=== PATIENT | female | born 1950 | race Caucasian/White ===

== ENCOUNTER → 2020-07-09 | Outpatient (CLI) | payer MEDICARE | END | disposition home or self-care (01) | LOC: CVU 12:44 | PROVIDERS: ATTEND Internal Medicine Cardiovascular Disease | DX: I08.3 Combined rheumatic disorders of mitral, aortic and tricuspid valves (principal); I65.23 Occlusion and stenosis of bilateral carotid arteries; R09.89 Other specified symptoms and signs involving the circulatory and respiratory systems; I11.9 Hypertensive heart disease without heart failure; R00.0 Tachycardia, unspecified | CPT/HCPCS: 93306; 93356; 93880 ==

== ENCOUNTER → 2020-07-26 | Outpatient (CLI) | payer MEDICARE ==
[~2020-07-26] MED LIST: REGADENOSON 0.4 MG/5 ML SYRINGE ONE
== END | disposition home or self-care (01) ==
LOC: CFH 07:14
PROVIDERS: ATTEND Internal Medicine Cardiovascular Disease
DX: I65.23 Occlusion and stenosis of bilateral carotid arteries (principal); R07.89 Other chest pain; I35.0 Nonrheumatic aortic (valve) stenosis; R09.89 Other specified symptoms and signs involving the circulatory and respiratory systems
CPT/HCPCS: 78452; 93017; A9502; J2785

== ENCOUNTER 2020-10-10 06:29 | Day surgery (SDC) | payer MEDICARE ==
[2020-10-10] MEDS ORDERED: CLIN300C9 PO (06:53)
[2020-10-10] MEDS ORDERED: ROSU40TA PO (06:53)
[2020-10-10] MEDS ORDERED: VALS80TA3 PO (06:53)
[2020-10-10] MEDS ORDERED: INSU100I13 SQ (06:53)
[2020-10-10] MEDS ORDERED: INSU100C SQ-INSULIN (06:53)
[2020-10-10] MEDS ORDERED: GABA100C PO (06:53)
[2020-10-10] MEDS ORDERED: FLUO20CA23 PO (06:53)
[2020-10-10] MEDS ORDERED: METO25TA35 PO (06:53)
[2020-10-10] MEDS ORDERED: TRAZ50TA66 PO (06:53)
[2020-10-10] MEDS ORDERED: ASPI81TA45 PO (06:53)
[2020-10-10] MEDS ORDERED: LIPA1CAP61 PO (06:53)
[2020-10-10] MEDS ORDERED: SODIUM CHLORIDE 0.9% 1,000 ML IV ONE (07:00)
[2020-10-10] MEDS ORDERED: PROPOFOL 10 MG/ML, 20ML ONE (07:31)
[2020-10-10 07:53] LABS: ALANINE AMINOTRANSFERASE 21 U/L (12-78); ALBUMIN 3.6 g/dL (3.4-5.0); ANION GAP 7 mmol/L (5-15); CALCIUM 8.5 mg/dL (8.5-10.1); CHLORIDE 108 mmol/L (98-107)
[2020-10-10 08:01] LABS: ALKALINE PHOSPHATASE 86 U/L (45-117); BILIRUBIN,TOTAL 0.4 mg/dL (0.2-1.0); CHOLESTEROL, TOTAL 154 mg/dL (140-239); CREATININE 0.71 mg/dL (0.55-1.02); FREE T4 (FREE THYROXINE) 1.08 ng/dL (0.76-1.46); HDL CHOL % 33 % (28-40); HDL CHOLESTEROL (DIRECT) 51 mg/dL (40-60); LDL CHOLESTEROL,CALCULATED 85 mg/dL (54-169); LDL/HDL RATIO 1.7 (0.5-3.0); TOTAL PROTEIN 6.5 g/dL (6.4-8.2); TRIGLYCERIDES 91 mg/dL (50-200); VLDL CHOLESTEROL 18 mg/dL (0-25)
[2020-10-10] MEDS ORDERED: ONDANSETRON 2MG/ML, 2ML ONE (08:47)
[2020-10-10] MEDS ORDERED: MAALOX/HYOSCYAMINE/LIDOCAINE 45 ML BTL PO ONE (09:00)
[2020-10-10] MEDS ORDERED: ONDANSETRON 2MG/ML, 2ML IVPush ONE (09:00)
== END 2020-10-10 09:47 | disposition home or self-care (01) ==
LOC: CACL 06:29
PROVIDERS: ATTEND Internal Medicine Cardiovascular Disease
DX: I08.0 Rheumatic disorders of both mitral and aortic valves (principal); I25.10 Atherosclerotic heart disease of native coronary artery without angina pectoris; I10 Essential (primary) hypertension; E10.42 Type 1 diabetes mellitus with diabetic polyneuropathy; E78.2 Mixed hyperlipidemia; Z20.822 Contact with and (suspected) exposure to COVID-19; Z79.4 Long term (current) use of insulin; Z79.82 Long term (current) use of aspirin; Z79.899 Other long term (current) drug therapy; Z88.0 Allergy status to penicillin
CPT/HCPCS: 36415; 80053; 80061; 82962; 83036; 84439; 84443; 87635; 93312; 93321; 93325; J2405; J2704

== ENCOUNTER 2020-11-14 06:52 | Day surgery (SDC) | payer MEDICARE ==
[~2020-11-14] VITALS: Ht 165.1 cm; Wt 69.0 kg
[~2020-11-14 06:52] MED LIST changes: +ASPI81TA45 PO; +CLIN300C9 PO; +FLUO20CA23 PO; +GABA100C PO; +INSU100C SQ-INSULIN; +INSU100I13 SQ; +LIPA1CAP61 PO; +METO25TA35 PO; -REGADENOSON 0.4 MG/5 ML SYRINGE ONE; +ROSU40TA PO; +TRAZ50TA66 PO; +VALS80TA3 PO
[2020-11-14] MEDS ORDERED: IBUP-11 PO (07:28)
[2020-11-14] MEDS ORDERED: LIPA1CAP61 PO (07:28)
[2020-11-14] MEDS ORDERED: METO25TA91 PO (07:28)
[2020-11-14 07:55] LABS: BASOPHILS % (AUTO) 1 % (0-1); EOSINOPHILS % (AUTO) 2 % (1-7); LYMPHOCYTES % (AUTO) 30 % (22-44); MD NO; MEAN CORPUSCULAR HEMOGLOBIN 28.4 pg (27.0-34.8); MEAN CORPUSCULAR HGB CONC 33.4 g/dL (32.4-35.8); MEAN PLATELET VOLUME 10.6 fL (7.4-10.4); MONOCYTES % (AUTO) 8 % (2-9); NEUTROPHILS % (AUTO) 59 % (42-75); PLATELET COUNT 169 x10^3/uL (130-400); RED BLOOD COUNT 4.81 x10^6/uL (3.82-5.3); RED CELL DISTRIBUTION WIDTH 13.8 % (9.6-15.2)
[2020-11-14 08:06] LABS: ANION GAP 6 mmol/L (5-15); CALCIUM 8.8 mg/dL (8.5-10.1); CHLORIDE 110 mmol/L (98-107); CREATININE 0.62 mg/dL (0.55-1.02)
[2020-11-14] MEDS ORDERED: FENTANYL PF 100 MCG/2ML ONE (08:15)
[2020-11-14] MEDS ORDERED: VERAPAMIL 2.5 MG/ML, 2ML ONE (08:15)
[2020-11-14] MEDS ORDERED: MIDAZOLAM 1 MG/ML, 5ML ONE (08:15)
[2020-11-14] MEDS ORDERED: LIDOCAINE-MPF 1%, 5ML ONE (08:16)
[2020-11-14] MEDS ORDERED: HEPARIN 1,000 UNITS/ML, 10ML ONE (08:16)
[2020-11-14] MEDS ORDERED: LIDOCAINE 2%, 20ML ONE (09:10)
[2020-11-14] MEDS ORDERED: SODIUM CHLORIDE 0.9% 1,000 ML IV SCH (10:00)
== END 2020-11-14 11:47 | disposition home or self-care (01) ==
LOC: CACL 06:52
PROVIDERS: ATTEND Internal Medicine Cardiovascular Disease
DX: I35.1 Nonrheumatic aortic (valve) insufficiency (principal); Q25.46 Tortuous aortic arch; I25.10 Atherosclerotic heart disease of native coronary artery without angina pectoris; I25.84 Coronary atherosclerosis due to calcified coronary lesion; I25.83 Coronary atherosclerosis due to lipid rich plaque; I10 Essential (primary) hypertension; E78.5 Hyperlipidemia, unspecified; E10.9 Type 1 diabetes mellitus without complications; Z79.1 Long term (current) use of non-steroidal anti-inflammatories (NSAID); Z79.4 Long term (current) use of insulin; Z79.899 Other long term (current) drug therapy; Z88.0 Allergy status to penicillin; Z95.2 Presence of prosthetic heart valve; Z98.890 Other specified postprocedural states; Z83.3 Family history of diabetes mellitus
CPT/HCPCS: 36415; 80048; 85025; 93458; 99156; 99157; C1769; C1894; J1644; J2250; J3010; Q9967

== ENCOUNTER → 2020-11-28 | Outpatient (CLI) | payer MEDICARE ==
[~2020-11-28] MED LIST changes: +IBUP-11 PO; +METO25TA91 PO; +OMNIPAQUE 350 MG/ML, 100ML BOTTLE ONE
== END | disposition home or self-care (01) ==
LOC: RAD 12:34
PROVIDERS: ATTEND Thoracic Surgery (Cardiothoracic Vascular Surgery)
DX: I35.1 Nonrheumatic aortic (valve) insufficiency (principal)
CPT/HCPCS: 71275; 74174; Q9967

== ENCOUNTER 2021-01-06 22:20 | Inpatient (IN) | payer MEDICARE ==
[~2021-01-06] VITALS: Ht 162.6 cm; Wt 77.4 kg
[~2021-01-06 22:20] MED LIST changes: +FURO20TA3 PO; +IBUP100T9 PO; +LIPA1CAP45 PO; -OMNIPAQUE 350 MG/ML, 100ML BOTTLE ONE; +POTA10TA5 PO; +TRAM50TA2 PO
--- NOTE | 2021-01-06 22:24 | NUR ---
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
--- NOTE | 2021-01-06 22:30 | NUR ---
ERP TO BEDSIDE FOR EVAL
[2021-01-06 23:17] LABS: BASOPHILS % (AUTO) 0 % (0-1); EOSINOPHILS % (AUTO) 1 % (1-7); LYMPHOCYTES % (AUTO) 17 % (22-44); MEAN CORPUSCULAR HGB CONC 32.8 g/dL (32.4-35.8); MEAN PLATELET VOLUME 9.1 fL (7.4-10.4); MONOCYTES % (AUTO) 12 % (2-9); NEUTROPHILS % (AUTO) 70 % (42-75); PLATELET COUNT 194 x10^3/uL (130-400)
[2021-01-06 23:20] LABS: MD NO
[2021-01-06 23:26] LABS: ALANINE AMINOTRANSFERASE 89 U/L (12-78); ALBUMIN 2.6 g/dL (3.4-5.0); ANION GAP 6 mmol/L (5-15); CALCIUM 8.4 mg/dL (8.5-10.1); CHLORIDE 102 mmol/L (98-107); CREATININE 0.54 mg/dL (0.55-1.02)
[2021-01-06 23:30] LABS: ALKALINE PHOSPHATASE 121 U/L (45-117); BILIRUBIN,TOTAL 0.5 mg/dL (0.2-1.0); TOTAL PROTEIN 6.1 g/dL (6.4-8.2)
[2021-01-06 23:48] LABS: TROPONIN I 0.407 ng/mL (0.000-0.045)
[2021-01-07] VITALS (7 sets, daily range): BP systolic 96–179; BP diastolic 58–82
[2021-01-07] MEDS ORDERED: BISACODYL 10 MG SUPP PR PRN (00:30)
[2021-01-07] MEDS ORDERED: hydrALAzine 20 MG/ML, 1ML IVPush PRN (00:30)
[2021-01-07] MEDS ORDERED: POLYETHYLENE GLYCOL 17 GM PACKET PO PRN (00:30)
[2021-01-07] MEDS ORDERED: FUROSEMIDE 40 MG/4 ML IV ONE (00:30)
[2021-01-07] MEDS ORDERED: ONDANSETRON ODT 4 MG PO PRN (00:30)
--- NOTE | 2021-01-07 00:40 | NUR ---
REPORT TO LYN COLÓN PT TO BE TRANSFERED TO [phone]
--- NOTE | 2021-01-07 00:57 | NUR ---
ASHWIN [phone]
[2021-01-07] MEDS ORDERED: SIMETHICONE 80 MG CHEW TAB PO PRN (01:00)
[2021-01-07] MEDS: INSULIN LISPRO 100 UNITS/ML, PEN SQ-INSULIN SCH ×5 (01:31→20:15)
[2021-01-07 05:26] LABS: ALANINE AMINOTRANSFERASE 79 U/L (12-78); ALBUMIN 2.5 g/dL (3.4-5.0); ANION GAP 7 mmol/L (5-15); CALCIUM 8.3 mg/dL (8.5-10.1); CHLORIDE 100 mmol/L (98-107); CREATININE 0.49 mg/dL (0.55-1.02)
[2021-01-07 05:29] LABS: BASOPHILS % (AUTO) 0 % (0-1); EOSINOPHILS % (AUTO) 1 % (1-7); LYMPHOCYTES % (AUTO) 10 % (22-44); MEAN CORPUSCULAR HEMOGLOBIN 28.7 pg (27.0-34.8); MEAN CORPUSCULAR HGB CONC 33.8 g/dL (32.4-35.8); MEAN PLATELET VOLUME 8.6 fL (7.4-10.4); MONOCYTES % (AUTO) 13 % (2-9); NEUTROPHILS % (AUTO) 77 % (42-75); PLATELET COUNT 202 x10^3/uL (130-400); RED BLOOD COUNT 3.25 x10^6/uL (3.82-5.3); RED CELL DISTRIBUTION WIDTH 14.1 % (9.6-15.2)
[2021-01-07 05:30] LABS: ALKALINE PHOSPHATASE 101 U/L (45-117); BILIRUBIN,TOTAL 0.5 mg/dL (0.2-1.0); TROPONIN I 0.341 ng/mL (0.000-0.045)
[2021-01-07 05:32] LABS: MD NO
[2021-01-07] MEDS: ASPIRIN 81 MG TABLET EC PO SCH (09:00)
[2021-01-07] MEDS: SENNA/DOCUSATE TABLET PO SCH (09:00)
[2021-01-07] MEDS ORDERED: ACETAMINOPHEN 325 MG TABLET PO PRN (09:00)
[2021-01-07] MEDS: POTASSIUM CHLORIDE 10 MEQ TABLET.ER PO SCH (09:00)
[2021-01-07] MEDS: VALSARTAN 80 MG TABLET PO SCH (09:01)
[2021-01-07] MEDS: SODIUM CHLORIDE FLUSH 10ML SYR IVF SCH ×2 (09:02→20:15)
[2021-01-07] MEDS: ENOXAPARIN 40 MG/0.4 ML SQ SCH (10:00)
[2021-01-07] MEDS: CARVEDILOL 6.25 MG TABLET PO SCH ×2 (10:01→17:49)
[2021-01-07] MEDS: PANCRELIPASE 24,000 CAPSULE.DR PO SCH ×3 (10:01→16:15)
[2021-01-07] MEDS: FUROSEMIDE 20 MG/2 ML IV SCH ×2 (13:11→16:15)
[2021-01-07] MEDS ORDERED: TRAZODONE 50MG TABLET PO SCH (21:00)
[2021-01-07] MEDS ORDERED: INSULIN GLARGINE 100 UNITS/ML, PEN SQ-INSULIN SCH (21:00)
[2021-01-07] MEDS ORDERED: ATORVASTATIN 80 MG TABLET PO SCH (21:00)
[2021-01-08 01:03] VITALS: BP 103/63
[2021-01-08] MEDS: CARVEDILOL 6.25 MG TABLET PO SCH ×2 (05:23→17:14)
[2021-01-08 05:54] LABS: ALBUMIN 2.4 g/dL (3.4-5.0); CALCIUM 8.4 mg/dL (8.5-10.1); CHLORIDE 102 mmol/L (98-107)
[2021-01-08 06:00] LABS: CREATININE 0.49 mg/dL (0.55-1.02); IRON LEVEL 38 mcg/dL (50-170); TOTAL IRON BINDING CAPACITY 216 mcg/dL (250-450)
[2021-01-08 06:01] LABS: % IRON SATURATION 18 % (20-55); ALANINE AMINOTRANSFERASE 60 U/L (12-78); ALKALINE PHOSPHATASE 89 U/L (45-117); BILIRUBIN,TOTAL 0.6 mg/dL (0.2-1.0); TOTAL PROTEIN 5.7 g/dL (6.4-8.2)
[2021-01-08 06:05] LABS: ANION GAP 4 mmol/L (5-15)
[2021-01-08 07:26] VITALS: BP 100/61
[2021-01-08] MEDS ORDERED: FERROUS SULFATE 325 MG TABLET ONE (08:27)
[2021-01-08] MEDS ORDERED: FUROSEMIDE 20 MG TABLET ONE (08:27)
[2021-01-08] MEDS ORDERED: FERROUS SULFATE 325 MG TABLET PO SCH (08:30)
[2021-01-08] MEDS: INSULIN LISPRO 100 UNITS/ML, PEN SQ-INSULIN SCH ×3 (08:33→16:14)
[2021-01-08] MEDS: ENOXAPARIN 40 MG/0.4 ML SQ SCH (08:34)
[2021-01-08] MEDS: SENNA/DOCUSATE TABLET PO SCH (08:34)
[2021-01-08] MEDS: VALSARTAN 80 MG TABLET PO SCH (08:34)
[2021-01-08] MEDS: POTASSIUM CHLORIDE 10 MEQ TABLET.ER PO SCH (08:35)
[2021-01-08] MEDS: SODIUM CHLORIDE FLUSH 10ML SYR IVF SCH (08:35)
[2021-01-08] MEDS: ASPIRIN 81 MG TABLET EC PO SCH (08:35)
[2021-01-08] MEDS: PANCRELIPASE 24,000 CAPSULE.DR PO SCH ×3 (08:35→16:14)
[2021-01-08] MEDS ORDERED: FUROSEMIDE 20 MG TABLET PO SCH (09:00)
[2021-01-08] MEDS ORDERED: FUROSEMIDE 40 MG TABLET PO SCH (09:00)
[2021-01-08] MEDS ORDERED: POTASSIUM CHLORIDE 20 MEQ TAB.ER.PRT PO ONE (10:00)
[2021-01-08] MEDS ORDERED: FUROSEMIDE 40 MG TABLET PO ONE (10:00)
[2021-01-08 11:32] VITALS: BP 96/59
[2021-01-08] MEDS ORDERED: FURO20TA3 PO (13:09)
[2021-01-08] MEDS ORDERED: FERR-36 PO (13:09)
[2021-01-08] MEDS ORDERED: CARV6.2512 PO (13:09)
[2021-01-08] MEDS ORDERED: INSU100I13 SQ-INSULIN (13:16)
[2021-01-08 15:08] VITALS: BP 101/61
[2021-01-08 17:19] VITALS: BP 114/67
[2021-01-08] MEDS ORDERED: INSULIN GLARGINE 100 UNITS/ML, PEN SQ-INSULIN SCH (21:00)
== END 2021-01-08 18:00 | disposition home or self-care (01) | DRG 280 ==
LOC: ED 23:07 → EDIP 01-07 00:28 → 5SO 01-07 00:55
PROVIDERS: ATTEND Internal Medicine
DX: I11.0 Hypertensive heart disease with heart failure (principal); I50.31 Acute diastolic (congestive) heart failure; I21.A1 Myocardial infarction type 2; I16.0 Hypertensive urgency; D64.9 Anemia, unspecified; E11.65 Type 2 diabetes mellitus with hyperglycemia; E66.9 Obesity, unspecified; Z68.29 Body mass index [BMI] 29.0-29.9, adult; D50.9 Iron deficiency anemia, unspecified; I44.7 Left bundle-branch block, unspecified; E78.5 Hyperlipidemia, unspecified; Z79.4 Long term (current) use of insulin; Z95.2 Presence of prosthetic heart valve; R74.01 Elevation of levels of liver transaminase levels; Z83.3 Family history of diabetes mellitus; Z88.0 Allergy status to penicillin
CPT/HCPCS: 36415; 71045; 80053; 82330; 82962; 83036; 83540; 83550; 83880; 84484; 85025; 93005; 96374; 99291; C8929; G0378; J1650; J1940; Q0162; Q9957; J1815

== ENCOUNTER → 2021-02-15 | Outpatient (CLI) | payer MEDICARE ==
[~2021-02-15] MED LIST changes: +CARV6.2512 PO; +FERR-36 PO; +INSU100I13 SQ-INSULIN
[2021-02-15 12:37] LABS: BASOPHILS % (AUTO) 1 % (0-1); EOSINOPHILS % (AUTO) 4 % (1-7); LYMPHOCYTES % (AUTO) 25 % (22-44); MEAN CORPUSCULAR HEMOGLOBIN 27.8 pg (27.0-34.8); MEAN CORPUSCULAR HGB CONC 32.7 g/dL (32.4-35.8); MONOCYTES % (AUTO) 8 % (2-9); NEUTROPHILS % (AUTO) 63 % (42-75); PLATELET COUNT 237 x10^3/uL (130-400); RED BLOOD COUNT 4.08 x10^6/uL (3.82-5.3); RED CELL DISTRIBUTION WIDTH 15.8 % (9.6-15.2)
[2021-02-15 12:42] LABS: MD NO
[2021-02-15 12:46] LABS: ANION GAP 3 mmol/L (5-15); CHLORIDE 102 mmol/L (98-107)
== END | disposition home or self-care (01) ==
LOC: CFH 10:46 → EDSTATUS 11:15
PROVIDERS: ATTEND Registered Nurse
DX: I08.1 Rheumatic disorders of both mitral and tricuspid valves (principal); D64.9 Anemia, unspecified; E10.42 Type 1 diabetes mellitus with diabetic polyneuropathy; I16.0 Hypertensive urgency; E78.2 Mixed hyperlipidemia; I25.10 Atherosclerotic heart disease of native coronary artery without angina pectoris; I11.9 Hypertensive heart disease without heart failure; I25.118 Atherosclerotic heart disease of native coronary artery with other forms of angina pectoris; F32.1 Major depressive disorder, single episode, moderate; F51.01 Primary insomnia; Z95.4 Presence of other heart-valve replacement
CPT/HCPCS: 36415; 80048; 83880; 85025; C8929; Q9957

== ENCOUNTER → 2021-03-02 | Outpatient (CLI) | payer MEDICARE ==
[2021-03-02 13:43] LABS: BASOPHILS % (AUTO) 1 % (0-1); EOSINOPHILS % (AUTO) 2 % (1-7); LYMPHOCYTES % (AUTO) 27 % (22-44); MEAN CORPUSCULAR HEMOGLOBIN 27.4 pg (27.0-34.8); MEAN CORPUSCULAR HGB CONC 32.6 g/dL (32.4-35.8); MEAN PLATELET VOLUME 9.2 fL (7.4-10.4); MONOCYTES % (AUTO) 7 % (2-9); NEUTROPHILS % (AUTO) 64 % (42-75); PLATELET COUNT 236 x10^3/uL (130-400); RED BLOOD COUNT 4.57 x10^6/uL (3.82-5.3); RED CELL DISTRIBUTION WIDTH 15.6 % (9.6-15.2)
[2021-03-02 13:54] LABS: ALANINE AMINOTRANSFERASE 27 U/L (12-78); ALBUMIN 3.7 g/dL (3.4-5.0); ANION GAP 7 mmol/L (5-15); CALCIUM 8.9 mg/dL (8.5-10.1); CHLORIDE 105 mmol/L (98-107); CHOLESTEROL, TOTAL 134 mg/dL (140-239); CREATININE 0.64 mg/dL (0.55-1.02)
[2021-03-02 14:05] LABS: ALKALINE PHOSPHATASE 109 U/L (45-117); BILIRUBIN,TOTAL 0.5 mg/dL (0.2-1.0); CHOL/HDL RATIO 2.2; HDL CHOL % 46 % (28-40); HDL CHOLESTEROL (DIRECT) 61 mg/dL (40-60); LDL CHOLESTEROL,CALCULATED 54 mg/dL (54-169); LDL/HDL RATIO 0.9 (0.5-3.0); TOTAL PROTEIN 7.3 g/dL (6.4-8.2); TRIGLYCERIDES 95 mg/dL (50-200); VLDL CHOLESTEROL 19 mg/dL (0-25)
== END | disposition home or self-care (01) ==
LOC: LAB 13:09
PROVIDERS: ATTEND Surgery
DX: Z11.59 Encounter for screening for other viral diseases (principal); E11.9 Type 2 diabetes mellitus without complications; E78.5 Hyperlipidemia, unspecified; R53.83 Other fatigue
CPT/HCPCS: 36415; 80053; 80061; 82043; 82570; 83036; 83519; 84443; 84681; 85025; 86337; 86803